=== PATIENT | male | born 1995 | race Caucasian/White ===

== ENCOUNTER 2017-08-10 08:54 | Emergency (ER) | payer BC ==
[~2017-08-10] VITALS: Ht 175.3 cm; Wt 142.0 kg
[2017-08-10] MEDS ORDERED: PEN-VEE K,VEET500 MG PO (09:19)
[2017-08-10] MEDS ORDERED: NAPROXEN500 MG PO (09:19)
[2017-08-10 09:54] VITALS: BP 145/98
== END 2017-08-10 10:07 | disposition home or self-care (01) ==
LOC: EME 08:54
PROC: 3E0T3BZ Introduction of Anesthetic Agent into Peripheral Nerves and Plexi, Percutaneous Approach (ICD-10-PCS; principal; 2017-08-10)
DX: K02.9 Dental caries, unspecified (principal); F17.200 Nicotine dependence, unspecified, uncomplicated
CPT/HCPCS: 99281; 99283